=== PATIENT | female | born 1995 | race Caucasian/White ===

== ENCOUNTER 2017-10-19 07:02 | Emergency (ER) | payer BC ==
[2017-10-19 07:16] VITALS: BP 133/82
[2017-10-19] MEDS ORDERED: Rabies VIRUS VACCINE (Imovax)* 2.5 UNIT/ML 1 ML IM ONE (07:34)
--- NOTE | 2017-10-19 07:47 | UC ---
Bite Injury/Animal HPI - HPI Summary HPI Summary: 22 yo female s/p feral cat bite to fright middle finger 10/10 10/11 had ER visit for I and D started on augmentin states finger much improved had rabies immunization in 2016 booster 2017 suggested to have 2 booster dose for this exposure - History of Current Complaint Chief Complaint: UCBiteInjury Stated Complaint: RABIES POST EXPOSURE Time Seen by Provider: 10/19/17 07:27 Hx Obtained From: Patient Hx Last Menstrual Period: 09/23/17 Severity Currently: Mild Severity Initially: Severe Pain Intensity: 0 Pain Scale Used: 0-10 Numeric Onset/Duration: Sudden Onset Type of Bite: Animal Has Animal Been Immunized?: Unknown - feral cat Character: Puncture Animal Available for Observation: No Animal Control Notified: Yes Body - Head: 1 - bite was incised and drained in [place] about a week ago, some mild swelling/no erthyema - Allergies/Home Medications Allergies/Adverse Reactions: Allergies Allergy/AdvReac Type Severity Reaction Status Date / Time No Known Allergies Allergy Verified 10/19/17 07:16 Home Medications: Home Medications Amoxicillin PO (*) [Amoxicillin 500 MG CAP*] 500 mg PO Q12H 10/19/17 [History Confirmed 10/19/17] Dextroamphetamine/Amphetamine [Adderall Xr 20 mg Capsule] 25 mg PO DAILY [History Confirmed 10/19/17] PMH/Surg Hx/FS Hx/Imm Hx Previously Healthy: Yes - Surgical History Surgical History: None - Family History Known Family History: Positive: Hypertension - Social History Alcohol Use: Rare Substance Use Type: None Smoking Status (MU): Never Smoked Tobacco - Immunization History Most Recent Tetanus Shot: 04/2018 Review of Systems Constitutional: Negative Skin: Negative Eyes: Negative ENT: Negative Respiratory: Negative Cardiovascular: Negative Gastrointestinal: Negative Genitourinary: Negative Motor: Negative Neurovascular: Negative Musculoskeletal: Negative Neurological: Negative Psychological: Negative Is Patient Immunocompromised?: No All Other Systems Reviewed And Are Negative: Yes Physical Exam Triage Information Reviewed: Yes Appearance: Well-Appearing, No Pain Distress, Well-Nourished Vital Signs: Initial Vital Signs Temp 98.8 F 10/19/17 07:11 Pulse 94 10/19/17 07:11 Resp 16 10/19/17 07:11 BP 133/82 10/19/17 07:11 Pulse Ox 100 10/19/17 07:11 Vital Signs Reviewed: Yes Eye Exam: Normal Eyes: Positive: Conjunctiva Clear ENT: Positive: Hearing grossly normal, Uvula midline. Negative: Nasal congestion, Nasal drainage, Trismus, Muffled voice, Hoarse voice Neck: Positive: Supple, Nontender Respiratory: Positive: Lungs clear, Normal breath sounds, No respiratory distress Cardiovascular: Positive: RRR, No Murmur Musculoskeletal: Positive: ROM Intact, No Edema Neurological: Positive: Alert Skin Exam: Other - see image Bite Injury Course/Dx - Differential Dx/Diagnosis Provider Diagnoses: feral cat bite right middle finger. rabies booster Discharge - Sign-Out/Discharge Documenting (check all that apply): Discharge/Admit/Transfer - Discharge Plan Condition: Stable Disposition: HOME Patient Education Materials: Rabies Vaccine (ED) Referrals: No Primary Care Phys,NOPCP [Primary Care Provider] - Additional Instructions: return 10/22 If your finger worsens at any point you need to get rechecked AMI - Billing Disposition and Condition Condition: STABLE Disposition: HOME
== END 2017-10-19 07:57 | disposition home or self-care (01) ==
LOC: UCEAST 07:02
DX: S61.232D Puncture wound without foreign body of right middle finger without damage to nail, subsequent encounter (principal); W55.01XD Bitten by cat, subsequent encounter; Z20.3 Contact with and (suspected) exposure to rabies; Z23 Encounter for immunization
CPT/HCPCS: 90471; 99201; G0463

== ENCOUNTER 2017-10-22 07:07 | Emergency (ER) | payer BC ==
[2017-10-22 07:23] VITALS: BP 127/79
[2017-10-22] MEDS ORDERED: Rabies VIRUS VACCINE (Imovax)* 2.5 UNIT/ML 1 ML IM ONE (07:32)
--- NOTE | 2017-10-22 07:45 | UC ---
Federico Ascencio Elizabeth, scribed for Ashlie Tellez MD on 10/22/17 at 0740 . General HPI - HPI Summary HPI Summary: This patient is a 22 year old F presenting to [facility] for a follow-up rabies booster vaccine after receiving a 1st booster at [facility] on 10/18/17. The patient was recommended to receive the rabies booster vaccine by the health department following a bite from a feral cat. The patient reports that the wound has scabbed over and healed well. The patient rates the pain 0/10 in severity. Symptoms aggravated by nothing. Symptoms alleviated by nothing. Patient denies fever, chills, nausea, and . Pt's medications reviewed this visit pt without questions or concerns - History of Current Complaint Chief Complaint: UCGeneralIllness Stated Complaint: RABIES BOOSTER Time Seen by Provider: 10/22/17 07:09 Hx Obtained From: Patient Hx Last Menstrual Period: september 23 Onset/Duration: Sudden Onset, Resolved Onset Severity: Mild Current Severity: None Pain Intensity: 0 Pain Location at: none Aggravating: nothing Alleviating: nothing Associated Signs & Symptoms: Positive: Other - NEGATIVE CHILLS. Negative: Fever , Nausea - Allergy/Home Medications Allergies/Adverse Reactions: Allergies Allergy/AdvReac Type Severity Reaction Status Date / Time No Known Allergies Allergy Verified 10/22/17 07:18 PMH/Surg Hx/FS Hx/Imm Hx Previously Healthy: Yes - Surgical History Surgical History: None - Family History Known Family History: Positive: Hypertension - Social History Occupation: Employed Full-time Lives: With Family Alcohol Use: Rare Substance Use Type: None Smoking Status (MU): Never Smoked Tobacco - Immunization History Most Recent Tetanus Shot: 04/2018 Review of Systems Constitutional: Negative - NEGATIVE CHILLS, NEGATIVE FEVER ENT: Negative - NEGATIVE EPISTAXIS Cardiovascular: Negative - NEGATIVE CHEST PAIN Gastrointestinal: Negative - NEGATIVE NAUSEA All Other Systems Reviewed And Are Negative: Yes Physical Exam - Summary Physical Exam Summary: Vital Signs Reviewed: Yes A+Ox3, no distress Eyes: Conjunctiva Clear ENT: Hearing grossly normal neck: supple Respiratory: Positive: No respiratory distress, No accessory muscle use Cardiovascular: skin color reflect adequate perfusion Musculoskeletal Exam: DILLARD x 4 without difficulty Neurological: Positive: Alert, ambualtory without difficulty Psychological: Positive: Normal Response To Family Skin: Positive: no rash, no ecchymosis Triage Information Reviewed: Yes Vital Signs: Initial Vital Signs Temp 98.8 F 10/22/17 07:19 Pulse 91 10/22/17 07:19 Resp 18 10/22/17 07:19 BP 127/79 10/22/17 07:19 Pulse Ox 100 10/22/17 07:19 Course/Dx - Course Course Of Treatment: Pt presents for 2/2 rabies booster. pt without questions or concerns related to recent 1/2 booster - Differential Dx - Multi-Symptom Provider Diagnoses: encounter for rabies booster Discharge - Sign-Out/Discharge Documenting (check all that apply): Discharge/Admit/Transfer - Discharge Plan Condition: Stable Disposition: HOME Patient Education Materials: Rabies Vaccine (ED) Referrals: No Primary Care Phys,NOPCP [Primary Care Provider] - Additional Instructions: Okay to take ibuprofen (Advil, Motrin) or tylenol as needed for discomfort related to the vaccination complete the antibiotics as previously prescribed for your wound. Monitor for signs of infection. If you develop reddness, red streaking, fever, drainage or other concerns contact your doctor, return here or go to the emergency department for futher evaluation and treatment - Billing Disposition and Condition Condition: STABLE Disposition: HOME The documentation as recorded by the Federico vazquez Elizabeth accurately reflects the service I personally performed and the decisions made by , Ashlie Tellez MD.
== END 2017-10-22 07:47 | disposition home or self-care (01) ==
LOC: UCEAST 07:07
DX: Z20.3 Contact with and (suspected) exposure to rabies (principal); Z23 Encounter for immunization; Z82.49 Family history of ischemic heart disease and other diseases of the circulatory system
CPT/HCPCS: 96372; 99211; G0463